=== PATIENT | male | born 1970 | race Caucasian/White ===

== ENCOUNTER 2018-09-28 09:21 | Emergency (ER) | payer BC, SELFPAY ==
[2018-09-28] VITALS (7 sets, daily range): BP systolic 122–132; BP diastolic 64–87; PULSE 52–75; RESP 16–28; TEMP 36.7–36.9; O2SAT 95–99; BMI 32.5
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
[2018-09-28] MEDS: Ondansetron 4 MG/2 ML Vial IM (09:44)
[2018-09-28] MEDS: HYDROmorphone 1 MG/ML Syringe IM ×2 (09:44→11:25)
--- NOTE | 2018-09-28 11:57 | RAD_ITS ---
We are attempting to reach an attending provider to discuss findings. An addendum with communication details will be sent when the communication is complete. STUDY: X-RAY CHEST REASON FOR EXAM: Male, 47 years old. Pneumothorax TECHNIQUE: Frontal view COMPARISON: September 28, 2018 at 09:46 hours. FINDINGS: The lungs are not fully expanded. There is right pneumothorax estimated at 15-20%, larger than on previous study. Normal size heart. Normal mediastinum and toshia. Normal visualized pulmonary arteries. Normal visualized aortic arch and descending thoracic aorta. Normal visualized thoracic spine. Right rib fractures noted. Right lateral chest wall subcutaneous emphysema is noted. There is no demonstrated abnormality of the visualized soft tissue structures of the upper abdomen. RAD/Chest Insp/Exp 2 View IMPRESSION: Right pneumothorax, larger than on previous study. Right rib fractures with subcutaneous emphysema seen of the right lateral chest wall. Electronically Signed: Stan Wilson DO at 12:59 EDT Tel [phone], Service support ,
--- NOTE | 2018-09-28 13:31 | NURSING ---
CALLING [facility] ABOUT TRAUMA TRANSFER.
--- NOTE | 2018-09-28 13:52 | NURSING ---
CALLED [facility] FOR TRANSPORT
[2018-09-28 13:55] LABS: Absolute Lymphocyte Count 1.62 X10^3/ul (0.83-4.51); Absolute Neutrophil Count 10.8 X10^3/uL (2.0-7.7); Basophil# 0.01 X10^3/uL; Basophil% 0.1 % (0-1); Eosinophil# 0.01 X10^3/uL; Eosinophils% 0.1 % (0-5); Hematocrit 42.9 % (40-54); Hemoglobin 14.9 g/dl (13.0-16.5); Lymphocyte # 1.62 X10^3/ul (4.0); Lymphocyte % 11.7 % (19-41); Mean Corp Hgb Conc 34.7 g/gl (32-36); Mean Corpuscular Volume 86.3 fL (80-94); Mean Platelet Vol. 10.5 fl (6.2-12.0); Monocyte# 1.37 X10^3/uL; Monocyte% 9.9 % (0-10); Neutrophil # 10.81 X10^3/uL (2.7-7.7); Neutrophil % 77.8 % (47-70); Platelet Count 175 K/mm3 (150-450); RBC Distribution Width CV 13.2 % (11.6-14.6); RBC Distribution Width SD 41.6 fl (35.1-43.9); Red Blood Count 4.97 M/mm3 (4.6-6.2); White Blood Count 13.9 K/mm3 (4.4-11.0)
[2018-09-28 13:58] LABS: POSITIVE COUNT NO; POSITIVE DIFFERENTIAL NO; POSITIVE MORPHOLOGY NO
[2018-09-28 14:09] LABS: Anion Gap 5 (5-15); BUN 16 mg/dL (7-18); BUN/Creat Ratio 12.9 RATIO (10-20); Calcium,Total 8.5 mg/dL (8.5-10.1); Chloride 109 mmol/L (98-107); Creatinine, Serum 1.24 mg/dL (0.70-1.30); EST Glomerular Filtration Rate 66 mL/min (>60); Est Glom Filt Rate - Afr Amer 80 mL/min (>60); Estimated Creatinine Clearance 79.96 ml/min; Glucose 93 mg/dL (74-106); Potassium 3.7 mmol/L (3.5-5.1); Sodium Level 143 mmol/L (136-145)
[2018-09-28] MEDS: Ondansetron 4 MG/2 ML Vial IV (14:13)
[2018-09-28] MEDS: HYDROmorphone 0.5 MG/0.5 ML SYRINGE IV (14:13)
== END 2018-09-28 14:19 | disposition short-term general hospital (02) ==
LOC: ED 10:25
PROVIDERS: Emergency Provider Emergency Medicine
DX: S27.2XXA Traumatic hemopneumothorax, initial encounter (principal); S22.41XA Multiple fractures of ribs, right side, initial encounter for closed fracture; V27.4XXA Motorcycle driver injured in collision with fixed or stationary object in traffic accident, initial encounter; Y93.9 Activity, unspecified; Y92.410 Unspecified street and highway as the place of occurrence of the external cause; Y99.9 Unspecified external cause status
CPT/HCPCS: 71046; 71101; 80048; 85025; 96372; 96374; 96375; 99285; A4216; J2405